=== PATIENT | female | born 1985 | race Caucasian/White ===

== ENCOUNTER → 2016-07-31 | Outpatient (CLI) | payer MEDICAID ==
[~2016-07-31] MED LIST: AMOXIL500 M1 PO; BACLOFEN 10MG T10 MG PO; BACTROBAN2% TP; DOXYCYCLINE MO100 MG PO; KEFLEX 500MG.500 MG PO; LORTAB 5/500 501 TAB PO; MOTRIN600 MG PO; SEPTRA DS 800 M1 TAB PO
[2016-07-31 10:43] LABS: LYMPH # 2.5 K/mm3 (0.7-4.5); LYMPH % 23.4 % (10-50.0)
[2016-07-31 10:52] LABS: HEMOGLOBIN 14.8 g/dL (12.2-16.2)
[2016-07-31 11:46] LABS: ABO BLOOD TYPE A
[2016-07-31 11:47] LABS: RH BLOOD TYPE POSITIVE
[2016-08-01 08:46] LABS: HIV Screen 4th Generation wRfx Non Reactive (Non Reactive); Rapid Plasma Reagin, Quant Non Reactive (NonRea<1:1)
[2016-08-02 03:36] LABS: HBsAg Screen Negative (Negative)
[2016-08-02 07:38] LABS: Rubella Antibodies, IgG 3.03 index (Immune >0.99)
== END ==
LOC: LAB 10:17
PROVIDERS: Nurse Practitioner Obstetrics & Gynecology
DX: Z34.80 Encounter for supervision of other normal pregnancy, unspecified trimester (principal)
CPT/HCPCS: G0432

== ENCOUNTER → 2016-08-10 | Outpatient (CLI) | payer MEDICAID ==
--- NOTE | 2016-08-10 16:31 | RADIOLOGY REPORT PS360 ---
. US TRANSVAGINAL PREG ORDERING PHYSICIAN : Topher Palmoino MD PATIENT AGE: 31 years GENDER: Female INDICATION: OB US FOR DATES TECHNIQUE: Transvaginal pelvic ultrasound COMPARISON: None FINDINGS Single viable intrauterine early gestation. Abnormal appearance to the gestational sac and its interface with endometrium. Normal decidual reaction.. Generous wall thickness anterior uterus noted. . Mean Gestational sac size equals 3.0 cm = 8 weeks 0 days CRL = 1.88 = 8 weeks 3 days. Yolk sac 0.54 cm. Heart flicker clearly evident Heart rate 136 BPM. With the above the AVERAGE ULTRASOUND AGE = 8 weeks 2 days Gestational age 9 weeks 3 days based on LMP of 06/05/2016 Cystic area at the cervix measuring 7.5 mm x 3.8 mm likely nabothian cyst. Left ovary 4 cm x 2.7 cm x 2.1 cm Right ovary 3.3 cm x 2.2 cm x 2.5 cm. Only tiny follicles seen in at the periphery of right > left ovary No fluid in cul-de-sac ----IMPRESSION: ------ Single viable intrauterine gestation . Average ultrasound age 8 weeks 2 days
== END ==
LOC: RAD 10:42
DX: O26.841 Uterine size-date discrepancy, first trimester (principal)

== ENCOUNTER → 2016-11-01 | Outpatient (CLI) | payer MEDICAID ==
--- NOTE | 2016-11-01 16:21 | RADIOLOGY REPORT PS360 ---
US PREG COMP: INDICATION: ANATOMY OB US ORDERING PHYSICIAN: Topher Palomino MD PATIENT AGE: 31 years TECHNIQUE: ultrasound transabdominal scanning. COMPARISON: No previous relevant studies. FINDINGS: Single viable intrauterine gestation. Cephalic position. Placenta: Anterior placenta grade 1. There is average amount fluid. The cervix appears satisfactory. Closed and measuring 5 cm in length. Complete survey performed and was unremarkable on the submitted images as in PACS. No discrete anomalies identified on survey imaging by technologist. Active fetus. Three-vessel cord with satisfactory umbilical cord insertion. 4- chamber heart noted. Survey of brain & ventricles. Face and neck survey unremarkable. Diaphragm and chest views unremarkable. Abdomen: Both kidneys noted and unremarkable. Stomach noted and satisfactory. Spine: Survey of the spine satisfactory with no anomalies identified nor imaged. Both arms and legs noted. Amniotic Fluid: Adequate. Maternal adnexa: No significant findings. Measurements: Average ultrasound age 20 weeks 5 days. Gestational Age 20 weeks 2 days. Estimated due date by ultrasound age 903/16/2017. Estimated weight 412 grams. BPD = 90 weeks 5 days OFD = 21 weeks 0 days HC = 19 weeks 6 days AC = 21 weeks 2 days FL = 22 weeks 0 days Heart Rate = 143 bpm Cerebellum = 20 weeks 1 day Humerus = 21 weeks 6 days HC/AC is 1.06 which is slightly low with normal at 1.09-1.26. CI is 72% within normal limits. FL/BPD is 82%. FL/AC is 23%. IMPRESSION: There is a single live intrauterine gestation in cephalic presentation with average ultrasound age of 20 weeks 5 days which is in the cephalic position. heart and body motion noted. No obvious anomalies are evident. HC/AC slightly low at 1.06. No obvious anomalies however apparent. Please see above for detail. The placenta is anterior. No previa apparent
== END ==
LOC: RAD 09:45
DX: Z36 Encounter for antenatal screening of mother (principal)

== ENCOUNTER 2017-03-19 03:58 | Inpatient (IN) | payer MEDICAID ==
[~2017-03-19] VITALS: Ht 157.5 cm; Wt 80.7 kg
[2017-03-19 04:36] VITALS: BP 131/82
[2017-03-19] MEDS ORDERED: ZANTAC 150150 MG PO (04:42)
[2017-03-19] MEDS ORDERED: NATURAL IRON65 MG PO (04:42)
[2017-03-19] MEDS ORDERED: PRENATAL 191 TAB PO (04:43)
[2017-03-19 05:09] LABS: URINE BILIRUBIN - DIPSTICK NEGATIVE (NEG); URINE BLOOD NEGATIVE (NEG)
[2017-03-19 05:18] LABS: AMPHETAMINES/METAMPHETAMINES NEGATIVE ng/mL (<1000)
[2017-03-19 06:53] LABS: HEMOGLOBIN 14.6 g/dL (12.2-16.2)
[2017-03-19 06:57] LABS: LYMPH # 2.4 K/mm3 (0.7-4.5); LYMPH % 19.8 % (10-50.0)
--- NOTE | 2017-03-19 07:44 | LABOR NOTE ---
Laboring Subjective Subjective Date 03/19/17 Time 0742 Subjective: Pt is having regular contractions Laboring Objective Objective NST: Reactive Contractions: q 2-3 minutes Cervical dilation: 4 Effacement: 100% Station: -1 Membranes are: Artificially ruptured (with thiin meconium) Fetus monitoring? Yes Type: Internal Comment: [facility] AND CLIP APPLIED Laboring Assessment Assessment Progressing? Yes Cephalopelvic disproportion? No Problem List: 1. Normal delivery Laboring Plan Plan Anethesia for epidural? Yes Continue to labor down? Yes Plan for ? No Continue to monitor? Yes Start pushing? No at 0743
[2017-03-19 08:41] VITALS: BP 109/67
[2017-03-19 08:49] LABS: URINE BILIRUBIN - DIPSTICK NEGATIVE (NEG); URINE BLOOD TRACE-INTACT (NEG)
[2017-03-19 09:28] LABS: ABO BLOOD TYPE A; RH BLOOD TYPE POSITIVE
--- NOTE | 2017-03-19 09:47 | LABOR NOTE ---
Laboring Subjective Subjective Date 03/19/17 Time 0946 Subjective: Pt is having regular contractions Laboring Objective Objective NST: Reactive Contractions: q 2-3 minutes Cervical dilation: 5 Effacement: 100% Station: 0 Membranes are: Artificially ruptured Fetus monitoring? Yes Type: Internal Laboring Assessment Assessment Progressing? Yes Cephalopelvic disproportion? No Problem List: 1. Normal delivery Laboring Plan Plan Anethesia for epidural? Yes Continue to labor down? Yes Plan for ? No Continue to monitor? Yes Start pushing? No Comment: decels with head compression, start amnio infusion at 0947
--- NOTE | 2017-03-19 11:42 | LABOR NOTE ---
Laboring Subjective Subjective Date 03/19/17 Time 1141 Subjective: Pt is having regular contractions Laboring Objective Objective NST: Reactive Contractions: q 2-3 minutes Cervical dilation: 9 Effacement: 100% Station: +1 Membranes are: Artificially ruptured Fetus monitoring? Yes Type: Internal Laboring Assessment Assessment Progressing? Yes Cephalopelvic disproportion? No Problem List: 1. Normal delivery Laboring Plan Plan Anethesia for epidural? Yes Continue to labor down? Yes Plan for ? No Continue to monitor? Yes Start pushing? Yes at 1142
--- NOTE | 2017-03-19 12:12 | Delivery Note ---
Delivery note Delivery date: 03/19/17 Delivery time: 1156 Anesthesia: Epidural, Terrell Fontanez Was labor medically induced? No Gestational age in weeks: 40 weeks Delivery prior to 39 weeks? No Sex: female score at one minute: 9 at 5 minutes: 9 Type of suction: delee AF: Thin meconium LAC or MLE: LAC (LEFT labial tear) Delivery procedure: Normal Delivery Delivery of placenta: spontaneous Clinical note She is a 31-year-old 6 now para 4 aborta 2 who was 40 weeks gestational age. She started having contractions on the evening prior to admission. She was admitted with regular contractions every 5-7 minutes. She had her membranes ruptured and under labor epidural progressed to full dilation. She delivered spontaneously a liveborn female child at 11:56 AM on the morning of March 19, 2017. On delivery the head I used a DeLee suction to suction her oropharynx and nasopharynx. There was approximately 2 mL of clear mucus. There was no evidence of meconium in the oral fluids. The cord was allowed to continue to pulsate for 1 minute and then it was doubly clamped. The baby was then handed off to Dr. Sexton who assigned Apgars of 9 at 1 minute and 9 at 5 minutes. We then obtained cord blood as well as cord pH. The pH was 7.30. Using gentle traction on the cord and countertraction on the fundus I was able to easily deliver the placenta intact. It had a normal three-vessel cord. She had a small LEFT labial tear that was repaired with interrupted 3-0 Vicryl Rapide suture. She has a positive blood, she is rubella immune and was group B streptococcus negative. She plans to breast-feed. Her outside sales manager is Dr. Sexton. Estimated blood loss was approximate 400 mL. at 1212
[2017-03-19 20:09] VITALS: BP 104/64
[2017-03-20 06:51] LABS: HEMOGLOBIN 12.1 g/dL (12.2-16.2)
[2017-03-20 07:54] VITALS: BP 100/62
--- NOTE | 2017-03-20 11:25 | ACUTE CARE PROGRESS NOTE (QUA) ---
Progress Notes Subjective Date 03/20/17 Time 1124 Note She is doing very well this morning. She is eating and drinking and ambulating. She is bottlefeeding. Her lochia is normal. Patient/family reports: feeling better, no complaints Objective Findings Last VS-Temp:98.2 B/P:100/62 Pulse:78 Resp:18 SaO2: Last weight lbs:178 oz:0 K.740 Method:Floor Scales Laboratory Tests 03/20/17 0620: Hgb 12.1 L, Hct 36.6 L 03/19/17 1209: Cord Blood pH 7.30 L Exam General appearance: normal appearance, alert, awake, no acute distress Reviewed: vital signs, lab results Assessment/Plan Problem List 1. Normal delivery Patient condition Improving, Stable Plan: continue current care This inpt stay is expected to cross 2 MNs from start of care Yes Comments: She is doing very well and she will be discharged home tomorrow. at 1125
[2017-03-20 19:40] VITALS: BP 117/69
[2017-03-21 08:30] VITALS: BP 107/60
--- NOTE | 2017-03-21 09:57 | ACUTE CARE PROGRESS NOTE (QUA) ---
Progress Notes Subjective Date 03/21/17 Time 0956 Note She continues to do very well. She is eating and drinking and ambulating. She is breast-feeding. Her lochia is normal. Patient/family reports: feeling better, no complaints Objective Findings Last VS-Temp:98.7 B/P:117/69 Pulse:73 Resp:16 SaO2: Last weight lbs:178 oz:0 K.740 Method:Floor Scales Exam General appearance: normal appearance, alert, awake, no acute distress Reviewed: vital signs Assessment/Plan Problem List 1. Normal delivery Patient condition Improving, Stable Plan: continue current care, initiate discharge plan This inpt stay is expected to cross 2 MNs from start of care Yes Comments: She is doing very well. We'll plan to send her home today. at 0957
--- NOTE | 2017-03-21 10:00 | Discharge Summary ---
Discharge Summary Admission date: 03/19/17 Discharge date: 03/21/17 Discharge diagnoses: Term , spontaneous vaginal delivery Clinical note: She is a 31-year-old 6 now para 4 aborta 2 who was 40 weeks gestational age. She came in in active labor and was having regular contractions. As result of that we elected to augment her labor with rupturing her membranes. Course in hospital: She had her membranes ruptured and under labor epidural progressed to full dilation. She delivered spontaneously a liveborn female child at 11:56 AM on the morning of March 19, 2017. The baby weighed 6 lbs. 15 oz. and was 19-1/2 inches long. She had Apgars of 9 at 1 minute and 9 at 5 minutes. She has done well and has remained afebrile throughout her hospitalization. She is eating and drinking and ambulating. She is breast- feeding. Her consultant in ergonomics and safety is Dr. Sexton. She has a positive blood, she is rubella immune and was group B streptococcus negative. Laboratory Tests 03/20/17 0620: Hgb 12.1 L, Hct 36.6 L 03/19/17 1209: Cord Blood pH 7.30 L 03/19/17 0830: Urine Color YELLOW, Urine Appearance CLEAR, Urine pH 7.0, Ur Specific [place] 1.010, Urine Protein NEGATIVE, Urine Ketones NEGATIVE, Urine Blood TRACE-INTACT, Urine Nitrate NEGATIVE, Urine Bilirubin NEGATIVE, Urine Urobilinogen 0.2, Ur Leukocyte Esterase NEGATIVE, Urine RBC OCC, Urine Bacteria TRACE, Urine Glucose NEGATIVE 03/19/17 0615: MCH 31.1 03/19/17 0615: WBC 12.1 H, RBC 4.69, Hgb 14.6, Hct 44.1, MCV 94.1, RDW 15.7, Plt Count 156, Gran % 77.0, Gran # 9.3 H, Lymphocytes % 19.8, Monocytes % 3.2, Lymphocytes # 2.4, Monocytes # 0.4, PUBS MCHC 33.1, Antibody Screen NEGATIVE, Miscellaneous Test POSITIVE 03/19/17 0506: Opiates Screen NEGATIVE, Urine Methadone Screen NEGATIVE, Barbiturates NEGATIVE, Phencyclidine Screen NEGATIVE, Amphetamines Screen NEGATIVE, Benzodiazepines Screen NEGATIVE, Cocaine Screen NEGATIVE, Marijuana (THC) Screen NEGATIVE, Urine Color YELLOW, Urine Appearance CLEAR, Urine pH 6.5, Ur Specific [place] <= 1.005 , Urine Protein NEGATIVE, Urine Ketones NEGATIVE, Urine Blood NEGATIVE, Urine Nitrate NEGATIVE, Urine Bilirubin NEGATIVE, Urine Urobilinogen 0.2, Ur Leukocyte Esterase NEGATIVE, Urine WBC 3-5, Ur Squamous Epith Cells 3-5, Urine Bacteria OCC, Urine Mucus OCC, Urine Glucose NEGATIVE Plans for ongoing care: She is discharged home to follow-up with me in approximately 2 weeks' time. Discharge medications She'll continue with her vitamins and iron. She is given a prescription for Percocet 5/325, 20 tablets. DC/follow-up instructions She was given the usual instructions with respect to limiting her activity, driving and sexual activity. Condition at discharge Stable and improved at 1000
--- NOTE | 2017-03-21 10:00 | Discharge Summary ---
Discharge Summary Admission date: 03/19/17 Discharge date: 03/21/17 Discharge diagnoses: Term , spontaneous vaginal delivery Clinical note: She is a 31-year-old 6 now para 4 aborta 2 who was 40 weeks gestational age. She came in in active labor and was having regular contractions. As result of that we elected to augment her labor with rupturing her membranes. Course in hospital: She had her membranes ruptured and under labor epidural progressed to full dilation. She delivered spontaneously a liveborn female child at 11:56 AM on the morning of March 19, 2017. The baby weighed 6 lbs. 15 oz. and was 19-1/2 inches long. She had Apgars of 9 at 1 minute and 9 at 5 minutes. She has done well and has remained afebrile throughout her hospitalization. She is eating and drinking and ambulating. She is breast- feeding. Her real estate accountant is Dr. Sexton. She has a positive blood, she is rubella immune and was group B streptococcus negative. Laboratory Tests 03/20/17 0620: Hgb 12.1 L, Hct 36.6 L 03/19/17 1209: Cord Blood pH 7.30 L 03/19/17 0830: Urine Color YELLOW, Urine Appearance CLEAR, Urine pH 7.0, Ur Specific [place] 1.010, Urine Protein NEGATIVE, Urine Ketones NEGATIVE, Urine Blood TRACE-INTACT, Urine Nitrate NEGATIVE, Urine Bilirubin NEGATIVE, Urine Urobilinogen 0.2, Ur Leukocyte Esterase NEGATIVE, Urine RBC OCC, Urine Bacteria TRACE, Urine Glucose NEGATIVE 03/19/17 0615: MCH 31.1 03/19/17 0615: WBC 12.1 H, RBC 4.69, Hgb 14.6, Hct 44.1, MCV 94.1, RDW 15.7, Plt Count 156, Gran % 77.0, Gran # 9.3 H, Lymphocytes % 19.8, Monocytes % 3.2, Lymphocytes # 2.4, Monocytes # 0.4, PUBS MCHC 33.1, Antibody Screen NEGATIVE, Miscellaneous Test POSITIVE 03/19/17 0506: Opiates Screen NEGATIVE, Urine Methadone Screen NEGATIVE, Barbiturates NEGATIVE, Phencyclidine Screen NEGATIVE, Amphetamines Screen NEGATIVE, Benzodiazepines Screen NEGATIVE, Cocaine Screen NEGATIVE, Marijuana (THC) Screen NEGATIVE, Urine Color YELLOW, Urine Appearance CLEAR, Urine pH 6.5, Ur Specific [place] <= 1.005 , Urine Protein NEGATIVE, Urine Ketones NEGATIVE, Urine Blood NEGATIVE, Urine Nitrate NEGATIVE, Urine Bilirubin NEGATIVE, Urine Urobilinogen 0.2, Ur Leukocyte Esterase NEGATIVE, Urine WBC 3-5, Ur Squamous Epith Cells 3-5, Urine Bacteria OCC, Urine Mucus OCC, Urine Glucose NEGATIVE Plans for ongoing care: She is discharged home to follow-up with me in approximately 2 weeks' time. Discharge medications She'll continue with her vitamins and iron. She is given a prescription for Percocet 5/325, 20 tablets. DC/follow-up instructions She was given the usual instructions with respect to limiting her activity, driving and sexual activity. Condition at discharge Stable and improved at 1000
[2017-03-21] MEDS ORDERED: PERCOCET 5/3251 EACH PO (10:01)
== END 2017-03-21 13:50 | disposition home or self-care (01) | DRG 775 ==
LOC: OBOUT 03:58 → OB 03:58 → OBOUT 05:52 → OB 05:53
PROVIDERS: Nurse Practitioner Obstetrics & Gynecology
PROC: 0HQ9XZZ Repair Perineum Skin, External Approach (ICD-10-PCS; principal; 2017-03-19)
PROC: 10E0XZZ Delivery of Products of Conception, External Approach (ICD-10-PCS; principal; 2017-03-19)
DX: O70.0 First degree perineal laceration during delivery (principal); Z37.0 Single live birth; Z3A.40 40 weeks gestation of pregnancy
CPT/HCPCS: C1758